=== PATIENT | female | born 1995 | race Caucasian/White ===

== ENCOUNTER → 2016-07-02 | Outpatient (CLI) | payer OTHER ==
[~2016-07-02] MED LIST: IOPAMIDOL (ISOVUE 370) 100 ML BTL IV ONE
== END ==
LOC: FIMAGING 09:44
PROVIDERS: ATTEND Internal Medicine
DX: R06.02 Shortness of breath (principal); R06.00 Dyspnea, unspecified
CPT/HCPCS: Q9967